=== PATIENT | female | born 1995 | race African-American/Black ===

== ENCOUNTER 2019-12-14 15:20 | Emergency (ER) | payer OTHER ==
[~2019-12-14] VITALS: Ht 162.6 cm; Wt 94.3 kg
[2019-12-14] MEDS ORDERED: [UNRECOGNIZED DRUG - OTHER] (15:27)
[2019-12-14] MEDS ORDERED: ONDANSETRON 4 MG ORAL DISINTEGRATING TAB (Q0162 PER 1MG) PO ONE (15:45)
[2019-12-14] MEDS ORDERED: ACETAMINOPHEN 325 MG TAB PO ONE (15:45)
[2019-12-14 16:30] LABS: INFLUENZA A AMPLIFICATION NEGATIVE (NEGATIVE); INFLUENZA B AMPLIFICATION NEGATIVE (NEGATIVE)
[2019-12-14 17:00] VITALS: BP 102/53
== END 2019-12-14 17:17 | disposition home or self-care (01) ==
LOC: M ED 15:20
DX: B34.9 Viral infection, unspecified (principal); F17.200 Nicotine dependence, unspecified, uncomplicated; Z91.013 Allergy to seafood
CPT/HCPCS: 36415; 84702; 87502; 99284; Q0162

== ENCOUNTER 2021-07-27 12:15 | Emergency (ER) | payer OTHER ==
[~2021-07-27] VITALS: Ht 162.6 cm; Wt 96.8 kg
[~2021-07-27 12:15] MED LIST: [UNRECOGNIZED DRUG - OTHER]
[2021-07-27 13:05] LABS: BASO % 0.5 % (0.0-1.0); EOS # 0.3 10^3/uL (0.0-0.5); EOS % 3.4 % (0.0-3.0); HEMATOCRIT 39.5 % (36.0-47.0); HEMOGLOBIN 13.6 g/dl (12.0-15.5); MEAN CORPUSCULAR HEMOGLOBIN 32.5 pg (27.0-33.0); MEAN CORPUSCULAR HGB CONC 34.4 g/dl (32.0-36.5); MEAN CORPUSCULAR VOLUME 94.3 fl (80.0-96.0); MONO # 0.6 10^3/uL (0.0-0.8); MONO % 8.6 % (2.0-8.0); NEUTROPHILS # 3.4 10^3/uL (1.5-8.5); NEUTROPHILS % 46.2 % (36.0-66.0); PLATELET COUNT, AUTOMATED 287 10^3/uL (150-450); RED BLOOD COUNT 4.19 10^6/uL (4.00-5.40); WHITE BLOOD COUNT 7.3 10^3/uL (4.0-10.0)
[2021-07-27 13:43] LABS: APPEARANCE, URINE CLEAR (CLEAR); BACTERIA, URINE AUTO 1+ (NEGATIVE); BILIRUBIN, URINE AUTO NEGATIVE (NEGATIVE); BLOOD, URINE BLOOD NEGATIVE (NEGATIVE); COLOR, URINE YELLOW (YELLOW); GLUCOSE, URINE (UA) AUTO NEGATIVE (NEGATIVE); KETONE, URINE AUTO NEGATIVE (NEGATIVE); LEUKOCYTE ESTERASE, URINE AUTO NEGATIVE (NEGATIVE); NITRITE, URINE AUTO NEGATIVE (NEGATIVE); PROTEIN, URINE AUTO NEGATIVE (NEGATIVE); RBC, URINE AUTO 0 /HPF (0-3); SPECIFIC GRAVITY URINE AUTO 1.015 (1.002-1.035); SQUAMOUS EPITHELIAL CELL UR AU 0 /HPF (0-6); UROBILINOGEN, URINE AUTO 0.2 mg/dL (0.0-2.0); WBC, URINE AUTO 1 /HPF (0-3)
--- NOTE | 2021-07-27 13:50 | REP ---
INDICATION: LLQ pain, pos preg. ?cyst vs ectopic preg COMPARISON: None. TECHNIQUE: Transabdominal 1st trimester obstetrical ultrasound with color Doppler evaluation. FINDINGS: Single live early intrauterine is appreciated. Gestational sac with yolk sac and pole identified. [place]-rump length of 10 mm corresponds to 7 weeks 1 day gestational age with estimated date of delivery 03/14/2022. heart rate equals 135 beats per minute. Bilateral maternal ovaries appear normal. IMPRESSION: Single live early intrauterine at 7 weeks 1 day gestational age. Complete anatomical assessment should be performed and 19-20 weeks. <Electronically signed by Ashkan Garcia > 07/27/21 [id number]
[2021-07-27 15:00] LABS: ALBUMIN 3.5 GM/DL (3.2-5.2); ALT/SGPT 19 U/L (12-78); BILIRUBIN,TOTAL 0.3 MG/DL (0.2-1.0); BLOOD UREA NITROGEN 7 MG/DL (7-18); CALCIUM LEVEL 9.3 MG/DL (8.5-10.1); CARBON DIOXIDE LEVEL 28 MEQ/L (21-32); CHLORIDE LEVEL 108 MEQ/L (98-107); GLOMERULAR FILTRATION RATE > 60.0 (>60); GLUCOSE, FASTING 64 MG/DL (70-100); HCG, SERUM QUANTITATIVE 32634 MIU/ML; SODIUM LEVEL 139 MEQ/L (136-145)
[2021-07-27 15:05] LABS: POTASSIUM SERUM 4.2 MEQ/L (3.5-5.1)
[2021-07-27] MEDS ORDERED: metroNIDAZOLE (FLAGYL) 500MG TABLET PO ONE (15:15)
[2021-07-27] MEDS ORDERED: ONDANSETRON 4 MG ORAL DISINTEGRATING TAB PO ONE (15:15)
[2021-07-27] MEDS ORDERED: FLAG500T PO (15:17)
[2021-07-27] MEDS ORDERED: ONDA4TAB6 PO (15:17)
[2021-07-27 15:19] VITALS: BP 120/56
[2021-07-27 16:11] LABS: GC DNA AMPLIFICATION NEGATIVE (NEGATIVE)
== END 2021-07-27 15:42 | disposition home or self-care (01) ==
LOC: M ED 12:15
DX: O98.311 Other infections with a predominantly sexual mode of transmission complicating pregnancy, first trimester (principal); A59.9 Trichomoniasis, unspecified; Z3A.01 Less than 8 weeks gestation of pregnancy; O99.331 Smoking (tobacco) complicating pregnancy, first trimester; F17.210 Nicotine dependence, cigarettes, uncomplicated
CPT/HCPCS: 36415; 76801; 80053; 81001; 84702; 85025; 86850; 86900; 86901; 87210; 87491; 87591; 99284; Q0162

== ENCOUNTER → 2021-09-02 | Outpatient (CLI) | payer OTHER ==
[~2021-09-02] MED LIST changes: +FLAG500T PO; +ONDA4TAB6 PO
[2021-09-02 18:09] LABS: HEMATOCRIT 35.1 % (36.0-47.0); HEMOGLOBIN 12.3 g/dl (12.0-15.5); MEAN CORPUSCULAR HEMOGLOBIN 32.1 pg (27.0-33.0); MEAN CORPUSCULAR VOLUME 91.6 fl (80.0-96.0); PLATELET COUNT, AUTOMATED 307 10^3/uL (150-450); RED BLOOD COUNT 3.83 10^6/uL (4.00-5.40); WHITE BLOOD COUNT 9.6 10^3/uL (4.0-10.0)
[2021-09-02 18:27] LABS: SICKLE CELL SCREEN NEGATIVE (NEGATIVE)
[2021-09-02 19:57] LABS: GC DNA AMPLIFICATION NEGATIVE (NEGATIVE)
[2021-09-02 20:45] LABS: HEPATITIS C VIRUS ABY INDEX 0.1 INDEX (<0.8); HIV 1&2 SCREEN CENTAUR NEGATIVE (NEGATIVE)
[2021-09-03 22:23] LABS: HEMOGLOBIN A1c 5.2 %
== END ==
LOC: M PLALAB 13:56
PROVIDERS: ATTEND Advanced Practice Midwife
DX: Z36.89 Encounter for other specified antenatal screening (principal); Z3A.12 12 weeks gestation of pregnancy

== ENCOUNTER → 2021-10-30 | Outpatient (CLI) | payer OTHER ==
--- NOTE | 2021-10-30 10:45 | REP ---
INDICATION: ANATOMY COMPARISON: 07/27/2021 TECHNIQUE: Transabdominal obstetrical ultrasound with color Doppler evaluation. FINDINGS: Examination demonstrates a single live intrauterine in variable presentation. motion is identified by technologist. Placenta is noted anterior and grade 0 without evidence for placenta previa or abruption. Amniotic fluid volume is normal. Cervix measures 4.0 cm in length and appears closed.. Selected gestational age: 21 weeks 0 days with KATRINA 03/12/2022. Gestational age by current measurements 21 weeks 4 days with KATRINA 03/08/2022. FHR equals 143 beats per minute. BPD: 5.2 cm; 21 weeks 6 days; 74% HC: 19.3 cm; 21 weeks 3 days; 65% AC: 17.4 cm; 22 weeks 3 days; 79% FL: 3.5 cm; 21 weeks 0 days; 49% HL: 3.3 cm; 21 weeks 0 days; 51% HC/AC: 1.10 Estimated weight 446 grams (82ndpercentile). Anatomical assessment demonstrates normal structures including cranium, choroid plexus, cavum, cerebellum/posterior fossa, facial features, lungs, diaphragm, stomach, cord insertion/three-vessel cord, kidneys/bladder, spine, and extremities. IMPRESSION: Single live intrauterine in variable presentation demonstrating appropriate interval growth. Limited evaluation of the heart/ventricular outflow tracts. Remainder of the anatomical assessment is complete and normal. <Electronically signed by Ashkan Garcia > 10/30/21 [id number]
== END ==
LOC: M WHC 08:11
PROVIDERS: ATTEND Advanced Practice Midwife
DX: Z36.3 Encounter for antenatal screening for malformations (principal); Z3A.21 21 weeks gestation of pregnancy

== ENCOUNTER → 2021-12-30 | Outpatient (CLI) | payer MEDICAID, OTHER, SELFPAY ==
[2021-12-30 13:34] LABS: APPEARANCE, URINE HAZY (CLEAR); BACTERIA, URINE AUTO NEGATIVE (NEGATIVE); BILIRUBIN, URINE AUTO NEGATIVE (NEGATIVE); BLOOD, URINE BLOOD NEGATIVE (NEGATIVE); COLOR, URINE YELLOW (YELLOW); GLUCOSE, URINE (UA) AUTO NEGATIVE (NEGATIVE); KETONE, URINE AUTO TRACE mg/dL (NEGATIVE); LEUKOCYTE ESTERASE, URINE AUTO NEGATIVE (NEGATIVE); MUCUS, URINE SMALL (NEGATIVE); NITRITE, URINE AUTO NEGATIVE (NEGATIVE); PROTEIN, URINE AUTO 1+ mg/dL (NEGATIVE); RBC, URINE AUTO 0 /HPF (0-3); SPECIFIC GRAVITY URINE AUTO 1.025 (1.002-1.035); SQUAMOUS EPITHELIAL CELL UR AU 6 /HPF (0-6); WBC, URINE AUTO 3 /HPF (0-3)
== END ==
LOC: M PLALAB 10:31
PROVIDERS: ATTEND Specialist
DX: R10.9 Unspecified abdominal pain (principal)

== ENCOUNTER → 2021-12-30 | Outpatient (CLI) | payer MEDICAID, OTHER, SELFPAY | LOC: M PLALAB 10:29 | PROVIDERS: ATTEND Advanced Practice Midwife | DX: Z34.81 Encounter for supervision of other normal pregnancy, first trimester (principal); Z3A.12 12 weeks gestation of pregnancy ==

== ENCOUNTER → 2021-12-30 | Outpatient (CLI) | payer MEDICAID, OTHER, SELFPAY ==
[2021-12-30 13:30] LABS: HEMATOCRIT 35.8 % (36.0-47.0); HEMOGLOBIN 11.9 g/dl (12.0-15.5); MEAN CORPUSCULAR HEMOGLOBIN 31.3 pg (27.0-33.0); MEAN CORPUSCULAR HGB CONC 33.2 g/dl (32.0-36.5); MEAN CORPUSCULAR VOLUME 94.2 fl (80.0-96.0); PLATELET COUNT, AUTOMATED 289 10^3/uL (150-450); WHITE BLOOD COUNT 8.5 10^3/uL (4.0-10.0)
[2021-12-30 15:37] LABS: GC DNA AMPLIFICATION NEGATIVE (NEGATIVE)
== END ==
LOC: M PLALAB 10:27
PROVIDERS: ATTEND Obstetrics & Gynecology
DX: Z34.82 Encounter for supervision of other normal pregnancy, second trimester (principal); Z3A.22 22 weeks gestation of pregnancy

== ENCOUNTER 2022-01-13 14:20 | Outpatient (CLI) | payer OTHER ==
[~2022-01-13] VITALS: Ht 162.6 cm; Wt 106.2 kg
[2022-01-13] MEDS ORDERED: UNIS25TA5 PO (14:43)
[2022-01-13] MEDS ORDERED: ZOLO25TA PO (14:43)
[2022-01-13] MEDS ORDERED: PRENTAB9 PO (14:43)
[2022-01-13] MEDS ORDERED: PYRI25TA2 PO (14:43)
[2022-01-13] MEDS ORDERED: HOME MED LIST COMPLETE! XX SCH (14:45)
[2022-01-13 14:48] VITALS: BP 128/63
[2022-01-13 15:29] VITALS: BP 125/74
[2022-01-13 16:41] VITALS: BP 117/68
[2022-01-13] MEDS ORDERED: LACTATED RINGER'S 1000 ML IV STA (17:06)
[2022-01-13] MEDS ORDERED: LR 1,000 ML IV SCH (17:10)
[2022-01-13] MEDS ORDERED: MORPHINE 4 MG/ML 1ML VIAL/SYRINGE (J2270) IV ONE (18:05)
[2022-01-13 18:10] LABS: HEMOGLOBIN 11.5 g/dl (12.0-15.5); MEAN CORPUSCULAR HEMOGLOBIN 31.9 pg (27.0-33.0); MEAN CORPUSCULAR HGB CONC 34.8 g/dl (32.0-36.5); MEAN CORPUSCULAR VOLUME 91.7 fl (80.0-96.0); PLATELET COUNT, AUTOMATED 279 10^3/uL (150-450); WHITE BLOOD COUNT 12.9 10^3/uL (4.0-10.0)
[2022-01-13 19:15] LABS: APPEARANCE, URINE CLEAR (CLEAR); BACTERIA, URINE AUTO NEGATIVE (NEGATIVE); BILIRUBIN, URINE AUTO NEGATIVE (NEGATIVE); BLOOD, URINE BLOOD NEGATIVE (NEGATIVE); GLUCOSE, URINE (UA) AUTO NEGATIVE (NEGATIVE); KETONE, URINE AUTO NEGATIVE (NEGATIVE); LEUKOCYTE ESTERASE, URINE AUTO NEGATIVE (NEGATIVE); NITRITE, URINE AUTO NEGATIVE (NEGATIVE); PROTEIN, URINE AUTO NEGATIVE (NEGATIVE); RBC, URINE AUTO 0 /HPF (0-3); SPECIFIC GRAVITY URINE AUTO 1.002 (1.002-1.035); SQUAMOUS EPITHELIAL CELL UR AU 0 /HPF (0-6); UROBILINOGEN, URINE AUTO 0.2 mg/dL (0.0-2.0); WBC, URINE AUTO 0 /HPF (0-3)
[2022-01-13 19:29] LABS: COLOR, URINE YELLOW (YELLOW)
== END 2022-01-13 21:40 | disposition home or self-care (01) ==
LOC: M LDO 14:20
PROVIDERS: ATTEND Obstetrics & Gynecology
DX: O26.893 Other specified pregnancy related conditions, third trimester (principal); M54.50 Low back pain, unspecified; Z3A.31 31 weeks gestation of pregnancy
CPT/HCPCS: 76775; 81001; 85027; J2270

== ENCOUNTER 2022-01-28 23:16 | Inpatient (IN) | payer OTHER ==
[~2022-01-28] VITALS: Ht 162.6 cm; Wt 104.9 kg
[~2022-01-28 23:16] MED LIST changes: +PRENTAB9 PO; +PYRI25TA2 PO; +UNIS25TA5 PO; +ZOLO25TA PO
[2022-01-28 23:32] VITALS: BP 124/69
[2022-01-29] VITALS (13 sets, daily range): BP systolic 103–139; BP diastolic 50–84
[2022-01-29] MEDS ORDERED: PENICILLIN G POTASSIUM IV 5 MU in D5W MINI-BAG PLUS 100 ML IV STA (00:25)
[2022-01-29] MEDS ORDERED: METHYLERGONOVINE MALEATE 0.2 MG/ML VIAL (J2210) IM PRN (00:25)
[2022-01-29] MEDS ORDERED: CARBOPROST TROMETHAMINE 250 MCG/ML AMP IM PRN (00:25)
[2022-01-29] MEDS ORDERED: TRANEXAMIC ACID INJection 1,000 MG in NS 100 ML IV PRN (00:25)
[2022-01-29] MEDS ORDERED: BETAMETHASONE SOLUSPAN 6MG/ML 5ML VIAL (J0702 PER 3MG) IM SCH (00:25)
[2022-01-29] MEDS ORDERED: OXYTOCIN INJ 10 UNITS/ML VIAL (J2590) IM PRN (00:25)
[2022-01-29] MEDS ORDERED: OXYTOCIN DRIP 30 UNITS in IV 1 EA IV PRN ×4 (00:25)
[2022-01-29] MEDS ORDERED: LACTATED RINGER'S 1000 ML IV ONE (00:35)
[2022-01-29 01:30] LABS: HEMATOCRIT 33.2 % (36.0-47.0); HEMOGLOBIN 11.9 g/dl (12.0-15.5); MEAN CORPUSCULAR HEMOGLOBIN 32.2 pg (27.0-33.0); MEAN CORPUSCULAR HGB CONC 35.8 g/dl (32.0-36.5); PLATELET COUNT, AUTOMATED 247 10^3/uL (150-450); RED BLOOD COUNT 3.69 10^6/uL (4.00-5.40); WHITE BLOOD COUNT 11.7 10^3/uL (4.0-10.0)
[2022-01-29] MEDS ORDERED: PENICILLIN G POTASSIUM IV 2.5 MU in IV 1 EA IV SCH (05:45)
[2022-01-29] MEDS ORDERED: BICITRA 30ML SOLN UDC PO ONE (07:45)
[2022-01-29] MEDS ORDERED: ceFAZolin SOD 2 GM in IV 1 EA IV ONE (07:45)
[2022-01-29] MEDS ORDERED: LACTATED RINGER'S 1000 ML IV STA (07:45)
[2022-01-29] MEDS ORDERED: LR 1,000 ML IV SCH (07:45)
[2022-01-29] MEDS: DOCUSATE SODIUM 100MG CAPSULE PO SCH ×2 (09:00→21:55)
[2022-01-29] MEDS ORDERED: AZITHROMYCIN INJ 500MG VIAL As Ordered ONE (09:33)
[2022-01-29] MEDS ORDERED: AZITHROMYCIN INJ 500 MG, VIAL MATE ADAPTER 1 EACH in NS 250 ML IV ONE (09:35)
[2022-01-29] MEDS ORDERED: MORPHINE PRES-FREE INJ 10 MG/10 ML VIAL (J2274) As Ordered ONE (09:43)
[2022-01-29] MEDS ORDERED: ONDANSETRON 4MG/2ML VIAL As Ordered ONE ×2 (09:43→11:25)
[2022-01-29] MEDS ORDERED: diphenhydrAMINE 50MG/ML VIAL (J1200) IV PRN (09:47)
[2022-01-29] MEDS ORDERED: NALBUPHINE HCL 10 MG/ML AMP (J2300) IV PRN (09:47)
[2022-01-29] MEDS ORDERED: METOCLOPRAMIDE INJ 10MG/2ML VIAL (J2765 PER 1) IV PRN (09:47)
[2022-01-29] MEDS ORDERED: ONDANSETRON 4MG/2ML VIAL IV PRN ×3 (09:47→11:00)
[2022-01-29] MEDS ORDERED: NALOXONE INJ 0.4MG/1ML VIAL (J2310 PER 1MG) IV PRN ×2 (09:47)
[2022-01-29] MEDS ORDERED: PHENYLephrine 500MCG 5ML (100MCG/ML) SYRINGE As Ordered ONE (09:50)
[2022-01-29] MEDS ORDERED: ePHEDrine SULFATE 25 MG/5 ML(5MG/ML) SYRINGE As Ordered ONE (09:54)
[2022-01-29] MEDS ORDERED: ACETAMINOPHEN 1000MG 100ML IV BTL (OFIRMEV) (J0131 PER 10MG) As Ordered ONE (09:58)
[2022-01-29] MEDS ORDERED: OXYTOCIN 30 UNITS IN 0.9% NaCl 500ML IV BAG (J2590) As Ordered ONE ×2 (10:01→11:33)
[2022-01-29] MEDS ORDERED: KETOROLAC 60MG 2ML VIAL As Ordered ONE (10:01)
[2022-01-29] MEDS: LR 1,000 ML IV SCH ×3 (10:55→17:48)
[2022-01-29] MEDS ORDERED: PERCOCET 5MG/325MG TAB PO PRN (10:55)
[2022-01-29] MEDS ORDERED: MOM 30ML SUSPENSION UDC PO PRN (10:55)
[2022-01-29] MEDS ORDERED: SIMETHICONE 80MG CHEW TAB PO PRN (10:55)
[2022-01-29] MEDS ORDERED: OXYTOCIN DRIP 30 UNITS in IV 1 EA IV SCH (10:55)
[2022-01-29] MEDS ORDERED: MEASLES,MUMPS,RUBELLA VACCINE INJ (MMR-II) (90707) SC SCH (10:55)
[2022-01-29] MEDS ORDERED: RHOGAM 300 MCG (1500 IU) INJ (J2790) IM SCH (10:55)
[2022-01-29] MEDS ORDERED: fentaNYL 100 MCG/2 ML INJECTION IV PRN (11:00)
[2022-01-29] MEDS ORDERED: oxyCODONE 5MG TAB PO PRN (11:00)
[2022-01-29 11:02] LABS: CORD GAS ABE A -4.8; CORD GAS HCO3 A 22.1 MEQ/L; CORD GAS O2 SAT A 92.7 %; CORD GAS PCO2 A 47.3 mmHg; CORD GAS PH A 7.287 UNITS; CORD GAS PO2 A 53.9 mmHg; CORD GAS SBC A 20.5 MEQ/L; CORD GAS TCO2 A 23.5 MEQ/L
[2022-01-29 11:04] LABS: CORD GAS ABE V -4.5; CORD GAS HCO3 V 20.5 MEQ/L; CORD GAS O2 SAT V 77.7 %; CORD GAS PCO2 V 37.9 mmHg; CORD GAS PH V 7.351 UNITS; CORD GAS PO2 V 31.5 mmHg; CORD GAS SBC V 20.3 MEQ/L; CORD GAS TCO2 V 21.7 MEQ/L
[2022-01-29] MEDS: PRENATAL VITAMINS CHEWABLE TABLET PO SCH (11:04)
[2022-01-29] MEDS: KETOROLAC 30 MG/ML 1ML VIAL IV SCH ×2 (15:58→22:06)
[2022-01-29] MEDS ORDERED: LR 1,000 ML IV ONE (16:25)
[2022-01-30 02:00] VITALS: BP 138/68
[2022-01-30] MEDS: KETOROLAC 30 MG/ML 1ML VIAL IV SCH (03:30)
[2022-01-30 06:00] VITALS: BP 134/73
[2022-01-30 08:15] LABS: HEMATOCRIT 31.4 % (36.0-47.0); HEMOGLOBIN 10.6 g/dl (12.0-15.5); MEAN CORPUSCULAR HEMOGLOBIN 31.2 pg (27.0-33.0); MEAN CORPUSCULAR HGB CONC 33.8 g/dl (32.0-36.5); MEAN CORPUSCULAR VOLUME 92.4 fl (80.0-96.0); PLATELET COUNT, AUTOMATED 256 10^3/uL (150-450); WHITE BLOOD COUNT 15.1 10^3/uL (4.0-10.0)
[2022-01-30] MEDS: DOCUSATE SODIUM 100MG CAPSULE PO SCH ×2 (08:27→20:25)
[2022-01-30] MEDS: PRENATAL VITAMINS CHEWABLE TABLET PO SCH (08:28)
[2022-01-30] MEDS: PERCOCET 5MG/325MG TAB PO PRN ×2 (08:28→16:43)
[2022-01-30] MEDS ORDERED: BOOSTRIX/ADACEL VACCINE (DIPHTH/PERTUSS/ACELL/TETANUS) 0.5ML SYR IM ONE (09:00)
[2022-01-30] MEDS: SERTRALINE HCL 25 MG TABLET PO SCH (09:00)
[2022-01-30] MEDS ORDERED: PERCOCET PO (09:04)
[2022-01-30] MEDS ORDERED: IBUP80TA PO (09:04)
[2022-01-30] MEDS ORDERED: COLA100C5 PO (09:04)
[2022-01-30 10:29] VITALS: BP 121/58
[2022-01-30] MEDS: IBUPROFEN 800 MG TAB PO SCH ×2 (11:44→20:00)
[2022-01-30 18:00] VITALS: BP 169/86
[2022-01-30 21:56] VITALS: BP 131/60
[2022-01-31] MEDS: PERCOCET 5MG/325MG TAB PO PRN ×2 (01:30→09:39)
[2022-01-31 01:59] VITALS: BP 116/55
[2022-01-31] MEDS: IBUPROFEN 800 MG TAB PO SCH (04:20)
[2022-01-31 05:51] VITALS: BP 126/56
[2022-01-31] MEDS: SERTRALINE HCL 25 MG TABLET PO SCH (09:38)
[2022-01-31] MEDS: PRENATAL VITAMINS CHEWABLE TABLET PO SCH (09:38)
[2022-01-31] MEDS: DOCUSATE SODIUM 100MG CAPSULE PO SCH (09:38)
[2022-01-31 10:00] VITALS: BP 117/54
== END 2022-01-31 12:10 | disposition home or self-care (01) | DRG 540 ==
LOC: M LDO 23:16 → M LDI 01-29 00:14 → M OBS 01-29 12:05
PROVIDERS: ADMIT Advanced Practice Midwife; ATTEND Obstetrics & Gynecology
PROC: 10D00Z1 Extraction of Products of Conception, Low, Open Approach (ICD-10-PCS; principal; 2022-01-29 09:00)
DX: O32.1XX0 Maternal care for breech presentation, not applicable or unspecified (principal); O99.324 Drug use complicating childbirth; O42.913 Preterm premature rupture of membranes, unspecified as to length of time between rupture and onset of labor, third trimester; Z3A.34 34 weeks gestation of pregnancy; Z91.14 Patient's other noncompliance with medication regimen; O99.344 Other mental disorders complicating childbirth; F41.9 Anxiety disorder, unspecified; F32.A Depression, unspecified; O99.334 Smoking (tobacco) complicating childbirth; F17.200 Nicotine dependence, unspecified, uncomplicated; F12.10 Cannabis abuse, uncomplicated; Z37.0 Single live birth

== ENCOUNTER 2022-04-14 19:57 | Emergency (ER) | payer OTHER ==
[~2022-04-14] VITALS: Ht 162.6 cm; Wt 103.0 kg
[~2022-04-14 19:57] MED LIST changes: +COLA100C5 PO; +IBUP80TA PO; +PERCOCET PO
[2022-04-14 19:59] VITALS: BP 142/62
== END 2022-04-14 23:11 | disposition left against medical advice (07) ==
LOC: M ED 19:57
DX: Z53.21 Procedure and treatment not carried out due to patient leaving prior to being seen by health care provider (principal)

== ENCOUNTER 2022-08-14 10:34 | Emergency (ER) | payer OTHER ==
[~2022-08-14] VITALS: Ht 162.6 cm; Wt 107.3 kg
[2022-08-14 10:35] VITALS: BP 129/84
[2022-08-14] MEDS ORDERED: IPRATROPIUM HFA INHALER 12.9 GRAMS (ATROVENT HFA) INH ONE (12:55)
[2022-08-14 12:57] VITALS: O2SAT 97
[2022-08-14 13:19] LABS: BASO % 0.5 % (0.0-1.0); EOS # 0.5 10^3/uL (0.0-0.5); EOS % 7.6 % (0.0-3.0); HEMATOCRIT 41.1 % (36.0-47.0); HEMOGLOBIN 14.1 g/dl (12.0-15.5); LYMPH # 2.2 10^3/uL (1.5-5.0); LYMPH % 33.3 % (24.0-44.0); MEAN CORPUSCULAR HEMOGLOBIN 32.3 pg (27.0-33.0); MEAN CORPUSCULAR HGB CONC 34.3 g/dl (32.0-36.5); MEAN CORPUSCULAR VOLUME 94.1 fl (80.0-96.0); MONO # 0.7 10^3/uL (0.0-0.8); MONO % 10.5 % (2.0-8.0); NEUTROPHILS # 3.1 10^3/uL (1.5-8.5); NEUTROPHILS % 47.8 % (36.0-66.0); PLATELET COUNT, AUTOMATED 306 10^3/uL (150-450); RED BLOOD COUNT 4.37 10^6/uL (4.00-5.40); WHITE BLOOD COUNT 6.5 10^3/uL (4.0-10.0)
[2022-08-14 13:26] LABS: RSV AMPLIFICATION NEGATIVE (NEGATIVE)
[2022-08-14 13:59] LABS: ALBUMIN 3.8 GM/DL (3.2-5.2); ALT/SGPT 28 U/L (12-78); BILIRUBIN,DIRECT < 0.1 MG/DL (0.0-0.2); BILIRUBIN,TOTAL 0.5 MG/DL (0.2-1.0); LIPASE 69 U/L (73-393); TOTAL PROTEIN 7.5 GM/DL (6.4-8.2)
[2022-08-14] MEDS ORDERED: PROAAER10 INH (15:55)
== END 2022-08-14 16:25 | disposition home or self-care (01) ==
LOC: M ED 10:34
DX: B34.9 Viral infection, unspecified (principal); J06.9 Acute upper respiratory infection, unspecified; R07.89 Other chest pain; F41.9 Anxiety disorder, unspecified; F32.A Depression, unspecified; Z91.013 Allergy to seafood; Z79.51 Long term (current) use of inhaled steroids; Z79.899 Other long term (current) drug therapy

== ENCOUNTER → 2022-08-27 | Outpatient (REF) | payer OTHER ==
[~2022-08-27] MED LIST changes: +PROAAER10 INH
[2022-08-27 17:07] LABS: HCG, SERUM QUALITATIVE NEGATIVE (NEGATIVE)
[2022-08-27 17:09] LABS: BASO % 0.6 % (0.0-1.0); EOS # 0.2 10^3/uL (0.0-0.5); EOS % 3.8 % (0.0-3.0); HEMATOCRIT 42.5 % (36.0-47.0); HEMOGLOBIN 14.1 g/dl (12.0-15.5); LYMPH # 2.4 10^3/uL (1.5-5.0); MEAN CORPUSCULAR HEMOGLOBIN 32.1 pg (27.0-33.0); MEAN CORPUSCULAR HGB CONC 33.2 g/dl (32.0-36.5); MEAN CORPUSCULAR VOLUME 96.8 fl (80.0-96.0); MONO # 0.5 10^3/uL (0.0-0.8); MONO % 8.1 % (2.0-8.0); PLATELET COUNT, AUTOMATED 354 10^3/uL (150-450); RED BLOOD COUNT 4.39 10^6/uL (4.00-5.40); WHITE BLOOD COUNT 6.3 10^3/uL (4.0-10.0)
[2022-08-27 17:15] LABS: ALBUMIN 3.9 GM/DL (3.2-5.2); ALT/SGPT 25 U/L (12-78); AMYLASE 81 U/L (25-115); BILIRUBIN,TOTAL 0.3 MG/DL (0.2-1.0); BLOOD UREA NITROGEN 9 MG/DL (7-18); CALCIUM LEVEL 9.5 MG/DL (8.5-10.1); CARBON DIOXIDE LEVEL 27 MEQ/L (21-32); CHLORIDE LEVEL 103 MEQ/L (98-107); CREATININE FOR GFR 0.77 MG/DL (0.55-1.30); GLOMERULAR FILTRATION RATE > 60.0 (>60); GLUCOSE, FASTING 80 MG/DL (70-100); LIPASE 125 U/L (73-393); POTASSIUM SERUM 4.5 MEQ/L (3.5-5.1); SODIUM LEVEL 138 MEQ/L (136-145); TOTAL PROTEIN 7.5 GM/DL (6.4-8.2)
== END ==
LOC: M LAB REF 15:57
PROVIDERS: ATTEND Nurse Practitioner Family
DX: R10.32 Left lower quadrant pain (principal)

== ENCOUNTER → 2022-08-28 | Outpatient (CLI) | payer OTHER ==
[~2022-08-28] MED LIST changes: +GASTROGRAFIN SOLUTION 30ML (Q9963) As Ordered ONE; +ISOVUE-370 76% 100ML VIAL As Ordered ONE
== END ==
LOC: M RAD 12:40
PROVIDERS: ATTEND Nurse Practitioner Family
DX: K44.9 Diaphragmatic hernia without obstruction or gangrene (principal); N83.201 Unspecified ovarian cyst, right side
CPT/HCPCS: 74177; Q9963; Q9967

== ENCOUNTER → 2022-09-23 | Outpatient (CLI) | payer OTHER ==
[~2022-09-23] MED LIST changes: -GASTROGRAFIN SOLUTION 30ML (Q9963) As Ordered ONE; -ISOVUE-370 76% 100ML VIAL As Ordered ONE
[2022-09-23 12:15] LABS: BASO % 0.4 % (0.0-1.0); EOS # 0.3 10^3/uL (0.0-0.5); EOS % 4.4 % (0.0-3.0); HEMOGLOBIN 13.9 g/dl (12.0-15.5); LYMPH # 2.2 10^3/uL (1.5-5.0); LYMPH % 29.4 % (24.0-44.0); MEAN CORPUSCULAR HEMOGLOBIN 31.6 pg (27.0-33.0); MEAN CORPUSCULAR HGB CONC 33.1 g/dl (32.0-36.5); MEAN CORPUSCULAR VOLUME 95.5 fl (80.0-96.0); MONO # 0.7 10^3/uL (0.0-0.8); MONO % 8.7 % (2.0-8.0); NEUTROPHILS # 4.2 10^3/uL (1.5-8.5); NEUTROPHILS % 56.7 % (36.0-66.0); PLATELET COUNT, AUTOMATED 320 10^3/uL (150-450); WHITE BLOOD COUNT 7.5 10^3/uL (4.0-10.0)
[2022-09-23 15:18] LABS: ALBUMIN 3.7 GM/DL (3.2-5.2); ALT/SGPT 22 U/L (12-78); BILIRUBIN,TOTAL 0.5 MG/DL (0.2-1.0); BLOOD UREA NITROGEN 7 MG/DL (7-18); CALCIUM LEVEL 9.5 MG/DL (8.5-10.1); CARBON DIOXIDE LEVEL 25 MEQ/L (21-32); CHLORIDE LEVEL 104 MEQ/L (98-107); CREATININE FOR GFR 0.77 MG/DL (0.55-1.30); GLOMERULAR FILTRATION RATE > 60.0 (>60); GLUCOSE, FASTING 88 MG/DL (70-100); LITHIUM LEVEL 0.38 MEQ/L (0.60-1.20); POTASSIUM SERUM 4.5 MEQ/L (3.5-5.1); SODIUM LEVEL 135 MEQ/L (136-145); THYROID STIMULATING HORMONE 0.557 uIU/ML (0.358-3.740); TOTAL PROTEIN 7.2 GM/DL (6.4-8.2)
[2022-09-23 18:31] LABS: TOTAL 25(OH) VITAMIN D 59.7 NG/ML (30.0-100.0)
[2022-09-23 20:06] LABS: HEMOGLOBIN A1c 5.5 %
== END ==
LOC: M LAB 10:57
PROVIDERS: ATTEND Psychiatry & Neurology Psychiatry
DX: F32.9 Major depressive disorder, single episode, unspecified (principal)

== ENCOUNTER → 2022-10-12 | Outpatient (CLI) | payer OTHER | LOC: M RAD 11:56 | PROVIDERS: ATTEND Pediatrics | DX: R07.89 Other chest pain (principal) ==

== ENCOUNTER 2022-10-30 14:34 | Emergency (ER) | payer OTHER ==
[~2022-10-30] VITALS: Ht 162.6 cm; Wt 111.8 kg
[2022-10-30] MEDS ORDERED: LITH300C PO (15:15)
[2022-10-30] MEDS ORDERED: LAMI1TAB7 PO (15:15)
[2022-10-30] MEDS ORDERED: MELO15TA28 PO (15:15)
[2022-10-30] MEDS ORDERED: SERT50TA29 PO ×2 (15:15→20:09)
[2022-10-30] MEDS ORDERED: RISP3TAB20 PO (15:15)
[2022-10-30] MEDS ORDERED: OMEP-173 PO (15:15)
[2022-10-30 17:02] LABS: HEMATOCRIT 38.3 % (36.0-47.0); HEMOGLOBIN 12.9 g/dl (12.0-15.5); MEAN CORPUSCULAR HEMOGLOBIN 32.1 pg (27.0-33.0); MEAN CORPUSCULAR HGB CONC 33.7 g/dl (32.0-36.5); MEAN CORPUSCULAR VOLUME 95.3 fl (80.0-96.0); PLATELET COUNT, AUTOMATED 318 10^3/uL (150-450); RED BLOOD COUNT 4.02 10^6/uL (4.00-5.40); WHITE BLOOD COUNT 10.9 10^3/uL (4.0-10.0)
[2022-10-30 17:24] LABS: HCG, SERUM QUALITATIVE NEGATIVE (NEGATIVE)
[2022-10-30 17:29] LABS: ETHYL ALCOHOL (ETHANOL) 0.003 % (0.000-0.010)
[2022-10-30 17:31] LABS: ACETAMINOPHEN LEVEL < 2.0 UG/ML (10.0-20.0); ALBUMIN 3.6 G/DL (3.2-5.2); ALKALINE PHOSPHATASE 81 U/L (46-116); ALT/SGPT 15 U/L (7.0-40); AST/SGOT 16 U/L (<34); BILIRUBIN,DIRECT < 0.1 MG/DL (<0.4); BILIRUBIN,TOTAL 0.3 MG/DL (0.3-1.2); BLOOD UREA NITROGEN 9 MG/DL (9-23); CALCIUM LEVEL 9.2 MG/DL (8.5-10.1); CARBON DIOXIDE LEVEL 26 MMOL/L (20-31); CHLORIDE LEVEL 107 MMOL/L (98-107); CREATININE FOR GFR 0.64 MG/DL (0.55-1.30); GLOMERULAR FILTRATION RATE > 60.0 (>60); GLUCOSE, FASTING 92 MG/DL (60-100); POTASSIUM SERUM 3.9 MMOL/L (3.5-5.1); SALICYLATE LEVEL < 3.0 MG/DL (<30); SODIUM LEVEL 140 MMOL/L (136-145); TOTAL PROTEIN 6.8 G/DL (5.7-8.2)
[2022-10-30 17:33] LABS: THYROID STIMULATING HORMONE 0.711 uIU/ML (0.55-4.78)
[2022-10-30 17:53] LABS: RSV AMPLIFICATION NEGATIVE (NEGATIVE)
[2022-10-30 18:34] LABS: AMPHETAMINES LEVEL URINE NEGATIVE (NEGATIVE); BARBITURATES URINE NEGATIVE (NEGATIVE); BENZODIAZEPINES URINE NEGATIVE (NEGATIVE); COCAINE METABOLITE URINE NEGATIVE (NEGATIVE); METHADONE URINE NEGATIVE (NEGATIVE); OPIATES URINE NEGATIVE (NEGATIVE); PHENCYCLIDINE URINE NEGATIVE (NEGATIVE)
[2022-10-30 18:35] LABS: CANNABINOIDS URINE POSITIVE (NEGATIVE)
[2022-10-30] MEDS ORDERED: ACETAMINOPHEN 325 MG TAB PO ONE (19:50)
[2022-10-30] MEDS ORDERED: ERGO500029 PO (20:09)
[2022-10-30] MEDS ORDERED: HOME MED LIST COMPLETE! XX SCH (20:10)
[2022-10-31 13:45] VITALS: BP 130/78
== END 2022-10-31 14:16 | disposition home or self-care (01) ==
LOC: M ED 14:34
DX: F53.0 Postpartum depression (principal); R45.851 Suicidal ideations; F41.9 Anxiety disorder, unspecified; F17.210 Nicotine dependence, cigarettes, uncomplicated; Z91.013 Allergy to seafood; Z79.899 Other long term (current) drug therapy

== ENCOUNTER 2023-06-11 14:49 | Emergency (ER) | payer OTHER ==
[~2023-06-11] VITALS: Ht 162.6 cm; Wt 110.0 kg
[2023-06-11 14:49] VITALS: BP 131/63; TEMP 97.5; O2SAT 99
[~2023-06-11 14:49] MED LIST changes: +ERGO500029 PO; +LAMI1TAB7 PO; +LITH300C PO; +MELO15TA28 PO; +OMEP-173 PO; +RISP3TAB20 PO; +SERT50TA29 PO
== END 2023-06-11 21:00 | disposition left against medical advice (07) ==
LOC: M ED 14:49
DX: R11.2 Nausea with vomiting, unspecified (principal); Z53.21 Procedure and treatment not carried out due to patient leaving prior to being seen by health care provider